=== PATIENT | male | born 1965 | race Caucasian/White ===

== ENCOUNTER → 2016-06-09 | Outpatient (CLI) | payer OTHER ==
[~2016-06-09] MED LIST: ECOTRIN325 MG PO; EXFORGE 5-160 M1 TAB PO; LIPITOR20 MG PO; LOSARTAN POTASS50 MG PO; METOPROLOL TART25 MG PO; PHENERGAN W/CO120 ML PO; PLAVIX PO; TESSALON200 MG PO; VOLTAREN75 MG PO; ZITHROMAX PO; ZOLOFT PO
--- NOTE | ~2016-06-09 | ST ---
Unit #: [id number] #: [id number] Patient: MALCOLM GUIDO [id number] [address] [address] [id number] O MR#: [id number] NAME: MALCOLM GUIDO. : 1965 SEX: M STUDY DATE/TIME: 06/09/2016 UNIT: [facility] ROOM: STUDY DESCRIPTION: Stress test Attending Physician: Nagi Shipman M.D. Referring Physician: Nagi Shipman M.D. Primary Care Physician: Jai Maciel M.D. CARDIOLOGY REPORT PROCEDURE PERFORMED ECG portion of nuclear stress test. INDICATION Dyspnea and fatigue. SUMMARY The patient underwent Eben treadmill protocol. Patient exercised for 7 minutes. The patient achieved a maximum heart rate of 153 beats per minute, representing 91% of the maximum age-predicted heart rate. The patient achieved a work level METS of 8.5. The patient's resting blood pressure was 142/98 mmHg, which increased to 170/100 mmHg. The patient's resting ECG shows normal sinus rhythm with normal ST segments. The patient's stress ECG shows preserved rhythm/sinus tachycardia with nonspecific ST segment changes, not meeting ischemic threshold. There was no ventricular or supraventricular ectopy noted. There were no pauses noted. CONCLUSION 1. Negative treadmill ECG stress test portion of the nuclear study for ischemia. 2. Fair exercise tolerance. 3. Normal blood pressure and heart rate response to exercise. 4. Perfusion imaging dictated below. PROCEDURE PERFORMED Nuclear portion of Cardiolite study. SUMMARY The patient underwent nuclear stress test. Received a resting dose of 10.29 mCi and a stress dose of 31.6 mCi. On gated imaging the patient appears to have normal wall motion with a preserved ejection fraction. The patient's LVEF is 67%. On perfusion imaging, comparing rest and stress images, there appears to be no reversible perfusion defects. Raw images do not show any abnormal motion. No abnormal uptake seen. Unit #: [id number] #: [id number] Patient: MALCOLM GUIDO CONCLUSIONS 1. No obvious ischemia. 2. Preserved ejection fraction. 3. ECG portion dictated above. Dictated by... Na Roa M.D. NH/db TD: 06/09/2016 14:28 JOB #: [id number] CARDIOLOGY REPORT Page 1 of 1 X NA ROA MD CARDIOLOGY REPORT
== END | disposition home or self-care (01) ==
LOC: CNUC 09:32
DX: R00.2 Palpitations (principal); G72.9 Myopathy, unspecified; R06.00 Dyspnea, unspecified
CPT/HCPCS: 78452; 93017; 93306; A9500

== ENCOUNTER → 2016-07-03 | Outpatient (CLI) | payer MEDICAID ==
--- NOTE | ~2016-07-03 | US136 ---
[facility] A Service of [facility] RADIOLOGY TEXT RESULTS PATIENT: MALCOLM GUIDO LOCATION: [facility] : 61 UNIT #: [id number] AGE: [address]: Jai Maciel MD SEX: M ORDER DR: [id number] [place] [id number] [facility]. [place], [place] [address] [id number] O MR#: [id number] Acc #: [id number] NAME: MALCOLM GUIDO : 1965 SEX: M STUDY DATE/TIME: 07/03/2016 12:05 UNIT: [facility] ROOM: STUDY DESCRIPTION: U/L [facility] Art Study [facility] Bil Attending Physician: Jai Maciel M.D. Referring Physician: Jai Maciel M.D. Ordering Physician: Jai Maciel M.D. Primary Care Physician: Jai Maciel M.D. MEDICAL IMAGING REPORT This report is preliminary unless electronic signature is present EXAM Ankle brachial indices Date of examination 07/04/2016 HISTORY Peripheral vascular disease FINDINGS The right brachial artery pressure is 132. The right dorsalis pedis pressure is 146, with ankle brachial index of 1.06. The right posterior tibial pressure is 151, with an ankle brachial index of 1.09. The right digital pressure is 113, with a toe index of 0.82. The left brachial artery pressure is 138. The left dorsalis pedis pressure is 155, with ankle brachial index of 1.12. The left posterior tibial pressure is 146, with ankle brachial index of 1.06. The left digital pressure is 113, with a toe index of 0.82. Digital waveforms demonstrate a sharp upstrokes and systolic peaks, bilaterally. The posterior tibial and dorsalis pedis waveforms are triphasic, bilaterally. IMPRESSION 1. The right KIANA is 1.09, with no evidence of arterial insufficiency. 2. The left KIANA is 1.12, with no evidence of arterial insufficiency. Dictated by... Wolf Almanza M.D. [facility] A Service of [facility] RADIOLOGY TEXT RESULTS PATIENT: MALCOLM GUIDO LOCATION: [facility] : 61 UNIT #: [id number] AGE: [address]: Jai Maciel MD SEX: M ORDER DR: THIS IS AN ELECTRONICALLY VERIFIED REPORT Wolf Almanza M.D. at 07/04/2016 1:45 PM THIERNO/jeramie TD: 07/03/2016 12:55 JOB #: [id number] MEDICAL IMAGING REPORT Page 1 of 1 COPY
== END | disposition home or self-care (01) ==
LOC: CNIV 11:30
DX: I73.9 Peripheral vascular disease, unspecified (principal)
CPT/HCPCS: 93922

== ENCOUNTER → 2016-07-15 | Outpatient (CLI) | payer MEDICAID ==
--- NOTE | ~2016-07-15 | CT57 ---
[facility] A Service of [facility] RADIOLOGY TEXT RESULTS PATIENT: MALCOLM GUIDO LOCATION: [facility] : 61 UNIT #: [id number] AGE: [address]: Dana Marr SEX: M ORDER DR: [id number] [facility] [address] [place], [place] [address] [id number] O MR#: [id number] Acc #: [id number] NAME: MALCOLM GUIDO : 1965 SEX: M STUDY DATE/TIME: 07/15/2016 13:55 UNIT: [facility] ROOM: STUDY DESCRIPTION: CT Chest Wo Cont Attending Physician: Dana Marr A.P.R.N. Referring Physician: Dana Marr A.P.R.N. Ordering Physician: Dana Marr A.P.R.N. Primary Care Physician: Jai Maciel M.D. MEDICAL IMAGING REPORT This report is preliminary unless electronic signature is present EXAM CT chest INDICATION Shortness of air. Abnormal imaging test. Abnormal chest radiograph. Positive smoking history for 40+ years. TECHNIQUE CT of the chest without contrast. Axial high-resolution images were obtained in the supine position during inspiration and expiration. Prone inspiration images were also acquired. Exam was performed as a high-resolution chest CT. This CT exam was performed with one or more of the following radiation dose reduction techniques: automatic exposure control, adjustment of mA and/or kV according to patient size, and iterative reconstruction. COMPARISON Chest radiograph dated 03/03/2016 and 04/12/2014. FINDINGS There is mild centrilobular and para septal emphysema. No focal consolidation. There is a small 4.0 mm pulmonary nodule in the superior segment right lower lobe and a 6.0 mm pulmonary nodule in the superior segment, right lower lobe. These are seen on image 34 and image 35. These are likely benign granulomas, however can be followed. There is no evidence of a significant chronic interstitial lung disease. There is no architectural distortion/honeycombing, bronchiectasis, ground-glass densities, or focal air trapping. Specifically, no evidence of a usual interstitial pneumonia. Central airways are patent. [facility] A Service of [facility] RADIOLOGY TEXT RESULTS PATIENT: MALCOLM GUIDO [id number] 61 UNIT #: [id number] AGE: [address]: Dana Marr SEX: M ORDER DR: No pericardial or pleural effusion. Thoracic aorta is within normal limits in size. IMPRESSION 1. Mild paraseptal and centrilobular emphysema. 2. No evidence of a significant chronic interstitial lung disease. Specifically, no evidence of a usual interstitial pneumonia (UIP). Dictated by... Juan Green M.D. THIS IS AN ELECTRONICALLY VERIFIED REPORT Juan Green M.D. at 07/16/2016 4:53 PM Elder TD: 07/16/2016 11:00 JOB #: [id number] MEDICAL IMAGING REPORT Page 1 of 1 COPY
== END | disposition home or self-care (01) ==
LOC: CRC 13:06
DX: R06.02 Shortness of breath (principal); R93.8 Abnormal findings on diagnostic imaging of other specified body structures; J43.2 Centrilobular emphysema
CPT/HCPCS: 71250; 94060; 94726; 94729